=== PATIENT | female | born 1960 | race Caucasian/White ===

== ENCOUNTER 2017-08-24 21:27 | Emergency (ER) | payer OTHER ==
[~2017-08-24] VITALS: Ht 162.6 cm; Wt 78.0 kg
--- NOTE | ~2017-08-24 | EKG ---
[place] [address] [facility] [place] [address] ELECTROCARDIOGRAM REPORT Name: GILSON CHOTTE Gretchne Room #: [facility]#: [id number] Admission: 08/24/17 Attend Phys: Discharge: 08/25/17 Date of : 62 Report #: [id number] THIS REPORT FOR: //name// [facility] ED Test Date: 2017-08-24 Test Time: 21:32:59 Pat Name: GÉNESIS CHO Department: Room: Gender: F Project Executive: Bc JUNIOR : 1960 Requested By: Jean Paul Baig Order Number: [id number] MD: Dwight Ortiz Measurements Intervals [place] Rate: 90 P: 33 SD: 162 QRS: -2 QRSD: 76 T: 33 QT: 465 QTc: 569 Interpretive Statements Sinus rhythm Right ventricular conduction delay Nonspecific ST and T wave abnormality Prolonged QT interval No previous ECG available for comparison Electronically Signed On 08-25-2017 12:44:25 FIELD EDUCATION COORDINATOR by Dwight Ortiz [email or web address] <ELECTRONICALLY SIGNED> By: Dwight Ortiz MD, [facility] 08/25/17 1244 31 Dwight Ortiz MD, FACC /EPI
[2017-08-24 22:26] LABS: ABSOLUTE NEUTROPHILS 7.3 thou/uL (1.4-8.2); BASOPHILS 0.5 % (0.0-2.0); EOSINOPHILS 0.9 % (0.0-3.0); HEMATOCRIT 40.3 % (37.0-47.0); HEMOGLOBIN 13.7 gm/dL (12.0-15.0); LYMPHOCYTES 13.9 % (24.0-44.0); MANUAL DIFF NO; MCH 28.6 pg (26.0-34.0); MCHC 34.1 g/dL (28.0-37.0); MCV 83.9 fL (80.0-100.0); MONOCYTES 7.3 % (1.0-8.0); PLATELET COUNT 268 thou/uL (150-400); POLYS 77.4 % (36.0-66.0); RDW 14.2 % (10.5-14.5); WBC 9.5 thou/uL (4.0-11.0)
[2017-08-24 22:35] LABS: ANION GAP 11 mmol/L (7-16); BUN 25 mg/dL (7-18); CALCIUM 8.9 mg/dL (8.5-10.1); CHLORIDE 106 mmol/L (98-107); CO2 27 mmol/L (21-32); CREATININE 0.9 mg/dL (0.6-1.0); GLUCOSE 108 mg/dL (74-106); POTASSIUM 3.4 mmol/L (3.5-5.1); SODIUM 144 mmol/L (136-145)
[2017-08-24] MEDS ORDERED: LEVOTHYROXINE100 MC1 IV (22:36)
[2017-08-24 22:43] LABS: ALBUMIN 3.9 g/dL (3.4-5.0); ALKALINE PHOSPHATASE 103 U/L (46-116); SGOT 34 U/L (15-37); SGPT 39 U/L (30-65); TOTAL BILIRUBIN 0.4 mg/dL (<0.1-1.0); TOTAL PROTEIN 8.1 g/dL (6.4-8.2); TROPONIN-I < 0.04 ng/mL (<0.06)
[2017-08-24] MEDS ORDERED: ZOFRAN ODT8 MG PO (23:38)
[2017-08-25 00:14] VITALS: BP 150/78
== END 2017-08-25 00:15 | disposition home or self-care (01) ==
LOC: ER 21:27
PROVIDERS: Emergency Medicine
DX: E86.0 Dehydration (principal); E03.9 Hypothyroidism, unspecified